=== PATIENT | male | born 1980 | race Caucasian/White ===

== ENCOUNTER → 2020-03-02 | Outpatient (CLI) | payer MEDICAID ==
[2018-11-21 11:21] VITALS: BP 128/85
[~2020-03-02] MED LIST: ALBU2.5V8 NEB; AMLO-186 PO; ASPI-630 PO; CLON0.1T12 PO; FURO40TA4 PO; HYDR-2145 PO; HYDR-3165 PO; LABE200T4 PO; LISI1TAB23 PO; NAPR-514 PO; NAPR-683 PO; ZOLPIDEM 5 MG TABLET. PO ONE
--- NOTE | 2020-03-04 15:14 | SLEEP ---
DATE OF STUDY: 03/02/2020 REFERRING PHYSICIAN: Thierno Childers APRN The patient is a 39-year-old who weighs 360 pounds with a BMI of 50. The patient's Edmonds score was 10. The patient underwent split night study performed at [facility]. During the night study, the patient spent 470 minutes in bed and slept for 161 minutes with a low sleep efficiency of 34%. The patient had difficulty in falling asleep due to frequent coughing episodes. There was also poor quality EEG signal throughout. During the night study, the patient had increased stage 1 and stage 2 sleep, absent slow wave and absent REM sleep. EKG monitoring revealed an average heart rate of 67 beats per minute, no sustained arrhythmias observed. No clinically significant PLM seen. Nocturnal oximetry study revealed an average oxygen saturation of 94%; the lowest of 85%. 46 minutes were spent with oxygen saturation between 80% and 89%. During the initial diagnostic portion of the study, the patient slept for 42 minutes. During that time, there was 1 obstructive apnea, 3 mixed apneas, no central apneas and 35 hypopneas. The patient's AHI was 29 per hour with a supine AHI of 28 per hour. REM sleep was not observed. The patient met the criteria for CPAP initiation. It was started at 5 cm water and titrated up to 12 cm water. At the final pressure, the patient slept for 44 minutes. The patient had supine sleep, but no REM sleep observed. The patient's AHI was reduced to 0 per hour and oxygen saturation remained above 88%. IMPRESSION: 1. Moderate to severe obstructive sleep apnea. Total AHI of 29 per hour. REM sleep was not seen throughout the night, which could have underestimated the severity of sleep apnea. 2. Nocturnal hypoxia secondary to obstructive sleep apnea, but resolved with CPAP. 3. Poor sleep efficiency throughout the night due to frequent coughing episodes. 4. No clinically significant periodic limb movements. RECOMMENDATIONS: 1. CPAP at 12 cm water completely eliminated the patient's sleep apnea and should be used on a nightly basis. 2. Follow up in 4-6 weeks to assess compliance with CPAP and to document clinical improvement. 3. Weight loss is strongly advised. 4. Avoid [employer]IC[employer] depressants. 5. Cautioned regarding driving until symptoms of sleep apnea resolve with the use of CPAP. 6. If the patient's sleep efficiency does not improve after resolution of cough and use of CPAP, then it should be further evaluated and treated according to the etiology. DOE GARZON MD DR: [email or web address]/john JOB#: [id number] / [id number] THIERNO Grewal APRN
== END ==
LOC: SLPLAB 19:20
PROVIDERS: ATTEND Nurse Practitioner Gerontology
DX: G47.30 Sleep apnea, unspecified (principal)
CPT/HCPCS: 95810